=== PATIENT | female | born 1995 | race Caucasian/White ===

== ENCOUNTER 2020-11-21 12:44 | Emergency (ER) | payer SELFPAY ==
[2020-11-21] MEDS ORDERED: Sodium Chloride 0.9% 10 ML Syringe FLUSH PRN (12:48)
[2020-11-21] MEDS ORDERED: Sodium Chloride 0.9% 2.5 ML Syringe FLUSH PRN (12:48)
[2020-11-21] MEDS ORDERED: Ondansetron 4 MG/2 ML SDV IVPUSH ONE (13:04)
[2020-11-21] MEDS ORDERED: Sodium Chloride 0.9% 1,000 ML IV ONE (13:04)
[2020-11-21] MEDS ORDERED: Morphine 4 MG/ML Syringe IVPUSH ONE (13:04)
--- NOTE | 2020-11-21 13:12 | EDM.PDOC ---
ED HPI GENERAL MEDICAL PROBLEM - General Chief Complaint: Abdominal Pain Stated Complaint: STOMACH PAIN Time Seen by Provider: 11/21/20 12:47 Source of Information: Reports: Patient History Limitations: Reports: No Limitations - History of Present Illness INITIAL COMMENTS - FREE TEXT/NARRATIVE: HISTORY AND PHYSICAL: History of present illness: Patient is a 25-year-old female who presents to the emergency room with complaints of upper abdominal pain and nausea. She states 3 years ago she was diagnosed with hepatitis C and she also has had a longstanding history of "gallbladder problems". Most recently she was living in [place] and had been admitted to the hospital for elevated LFTs and assessment of her gallbladder. She states that they were going to evaluate her gallbladder further but had discharged her before they did any type of formal testing. She was discharged from the [facility] 3 weeks ago, continues to have abdominal pain after every time she eats, starts approximately 30 minutes after eating and resolves 1 hour after pain started. "Everyone in my family has had to have their gallbladder removed, but they will not do it because of my hepatitis". Today's symptoms are not new or unusual but decided to come in for evaluation as "I do not want to deal with the pain anymore". Patient denies any fever, chills, headache, change in vision, syncope or near syncope. Denies any chest pain, back pain, shortness of breath or cough. Denies any vomiting, diarrhea, constipation or dysuria. Has not noted any blood in urine or stool. Patient has been eating and drinking appropriately. Review of systems: As per history of present illness and below otherwise all systems reviewed and negative. Past medical history: As per history of present illness and as reviewed below otherwise noncontributory. Surgical history: As per history of present illness and as reviewed below otherwise noncontributory. Social history: See social history for further information Family history: As per history of present illness and as reviewed below otherwise noncontributory. Physical exam: General: Well developed and well nourished. Alert and orientated x 3. Nontoxic in appearance and in no acute distress. Vital signs are stable and have been reviewed by me. Nursing notes were reviewed. HEENT: Atraumatic, normocephalic, pupils equal and reactive bilaterally, negative for conjunctival pallor or scleral icterus, mucous membranes moist, TMs normal bilaterally, throat clear, neck supple, nontender, trachea midline. No drooling or trismus noted. No meningeal signs. No hot potato voice noted. Lungs: Clear to auscultation bilaterally. No wheezes, rales, or rhonchi. Chest nontender. Normal work of breathing, no accessory muscles used. Heart: S1S2, regular rate and rhythm without overt murmur, gallops, or rubs. No JVD. No peripheral edema Abdomen: Soft, nondistended, RUQ and LUQ tenderness with palpation. Normoactive bowel sounds. Negative for masses or costovertebral tenderness. Skin: Intact, warm, dry. No lesions or rashes noted. Hematologic: No petechiae or purpra. Mucosa appropriate color and normal nail bed color and refill. Extremities: Atraumatic, moves all extremities per self without difficulty or deficits, negative for cords or calf pain. Neurovascular unremarkable. Neuro: Awake, alert, oriented. Cranial nerves II through XII unremarkable. Cerebellum unremarkable. Motor and sensory unremarkable throughout. Exam nonfocal. Psychiatric: Mood and affect are appropriate. Normal thought process. Answering questions appropriately. Notes: *This patient was seen and evaluated during the 2019 SARS-CoV-2 novel coronavirus pandemic period. Community viral transmission is ongoing at time of this encounter and the emergency department is operating under pandemic response procedures. Patient is a 25-year-old female who presents to the emergency room with complaints of chronic abdominal pain. In the past she has been told it is due to her hepatitis C but she is convinced it is due to her gallbladder. She reports she recently was admitted at a [place] hospital due to elevated LFTs. She has now moved to [facility] and does not have any primary care established. Physical exam is unremarkable with the exception that her abdomen is tender with palpation to the right upper and left upper quadrant. Patient's LFTs are slightly elevated. She also has +2 bacteria in her urine. Due to the abdominal pain I will treat with Macrobid. Patient does feel improved after fluids and medications. I have sent a referral to the general surgeon as she is concerned she needs her gallbladder removed or would wish to have this happen in the near future. She is stable for discharge. I have talked with the patient about today's findings, in addition to providing specific details for plan of care. Reassessment at the time of disposition demonstrates that the patient is in no acute distress. The patient is stable for discharge, counseling was provided and we discussed in great detail signs and symptoms that would prompt them to return to the Emergency Department. Medication, follow up and supportive care measures were reviewed and discussed. Voices understanding and is agreeable to plan of care. Denies any further questions or concerns at this time. Diagnostics: CBC, CMP, UA, Lipase, HCGU Therapeutics: IV fluids, Zofran, Morphine Prescription: Macrobid Impression: Transaminitis UTI Abdominal pain Plan: 1. You were evaluated today on an emergent basis. Your LFTs are slightly elevated and you do have some bacteria in your urine. Antibiotics have been sent to [facility] to treat the bladder infection. [place] diet, low dairy, low fat over the next few days to see if this helps with the pain associated with eating. 2. You can alternate Tylenol and ibuprofen as needed for pain and fever management. 3. We encourage you to follow up with your primary care provider and the general surgeon to evaluate your gallbladder in the next few days for re-evaluation and further care/management. 4. If your symptoms should worsen, new symptoms develop or any of the signs and symptoms we discussed should arise please return to the emergency room or call 911 (if needed). Definitive disposition and diagnosis as appropriate pending reevaluation and review of above. Mid Abdominal Pain Score (Numeric/FACES): 8 - Related Data Allergies Allergy/AdvReac Type Severity Reaction Status Date / Time No Known Allergies Allergy Verified 11/21/20 14:14 Home Meds: Home Meds Nitrofurantoin Monohyd/M-Cryst [Macrobid 100 mg Capsule] 100 mg PO BID 5 Days #10 capsule 11/21/20 [Rx] ED ROS GENERAL - Review of Systems Review Of Systems: Comprehensive ROS is negative, except as noted in HPI. ED EXAM, GI/ABD - Physical Exam Exam: See Below (See dictation) Course - Vital Signs Last Recorded V/S: Last Vital Signs Temp 97.5 F 11/21/20 13:06 Pulse 87 11/21/20 13:06 Resp 17 11/21/20 13:06 BP 113/66 11/21/20 14:24 Pulse Ox 99 11/21/20 13:06 - Orders/Labs/Meds Orders: Active Orders 24 hr Category Date Time Status Saline Lock Insert [OM.PC] Stat Oth 11/21/20 12:48 Ordered Labs: Laboratory Tests 11/21/20 11/21/20 11/21/20 Range/Units 13:00 13:00 13:35 WBC 7.61 (4.0-11.0) K/uL RBC 5.55 (4.30-5.90) M/uL Hgb 15.1 (12.0-16.0) g/dL Hct 45.6 (36.0-46.0) % MCV 82.2 (80.0-98.0) fL MCH 27.2 (27.0-32.0) pg MCHC 33.1 (31.0-37.0) g/dL RDW Std Deviation 41.6 (28.0-62.0) fl RDW Coeff of Mary 14 (11.0-15.0) % Plt Count 351 (150-400) K/uL MPV 9.40 (7.40-12.00) fL Neut % (Auto) 68.8 (48.0-80.0) % Lymph % (Auto) 23.0 (16.0-40.0) % [place] % (Auto) 5.8 (0.0-15.0) % Eos % (Auto) 2.1 (0.0-7.0) % Baso % (Auto) 0.3 (0.0-1.5) % Neut # (Auto) 5.2 (1.4-5.7) K/uL Lymph # (Auto) 1.8 (0.6-2.4) K/uL [place] # (Auto) 0.4 (0.0-0.8) K/uL Eos # (Auto) 0.2 (0.0-0.7) K/uL Baso # (Auto) 0.0 (0.0-0.1) K/uL Nucleated RBC % 0.0 /100WBC Nucleated RBCs # 0 K/uL Sodium 142 (136-145) mmol/L Potassium 4.2 (3.5-5.1) mmol/L Chloride 103 (98-107) mmol/L Carbon Dioxide 28.5 (21.0-32.0) mmol/L BUN 11 (7.0-18.0) mg/dL Creatinine 0.7 (0.6-1.0) mg/dL Est Cr Clr Drug Dosing 97.17 mL/min Estimated GFR (MDRD) > 60.0 ml/min Glucose 127 H (74-106) mg/dL Calcium 9.3 (8.5-10.1) mg/dL Total Bilirubin 0.8 (0.2-1.0) mg/dL AST 70 H (15-37) IU/L ALT 127 H (14-63) IU/L Alkaline Phosphatase 276 H (46-116) U/L Total Protein 8.1 (6.4-8.2) g/dL Albumin 4.0 (3.4-5.0) g/dL Globulin 4.1 H (2.6-4.0) g/dL Albumin/Globulin Ratio 1.0 (0.9-1.6) Lipase 112 (73-393) U/L Urine Color YELLOW Urine Appearance SLT CLOUDY Urine pH 8.5 H (5.0-8.0) Ur Specific [place] 1.015 (1.001-1.035) Urine Protein TRACE H (NEGATIVE) mg/dL Urine Glucose (UA) NEGATIVE (NEGATIVE) mg/dL Urine Ketones NEGATIVE (NEGATIVE) mg/dL Urine Occult Blood NEGATIVE (NEGATIVE) Urine Nitrite NEGATIVE (NEGATIVE) Urine Bilirubin NEGATIVE (NEGATIVE) Urine Urobilinogen 1.0 (<2.0) EU/dL Ur Leukocyte Esterase NEGATIVE (NEGATIVE) Urine RBC NONE SEEN (0-2/HPF) Urine WBC 0-3 (0-5/HPF) Ur Epithelial Cells MODERATE (NONE-FEW) Urine Bacteria 2+ H (NEGATIVE) Urine Mucus MODERATE (NONE-MOD) Urine HCG, Qual (NEGATIVE) 11/21/20 Range/Units 13:35 WBC (4.0-11.0) K/uL RBC (4.30-5.90) M/uL Hgb (12.0-16.0) g/dL Hct (36.0-46.0) % MCV (80.0-98.0) fL MCH (27.0-32.0) pg MCHC (31.0-37.0) g/dL RDW Std Deviation (28.0-62.0) fl RDW Coeff of Mary (11.0-15.0) % Plt Count (150-400) K/uL MPV (7.40-12.00) fL Neut % (Auto) (48.0-80.0) % Lymph % (Auto) (16.0-40.0) % [place] % (Auto) (0.0-15.0) % Eos % (Auto) (0.0-7.0) % Baso % (Auto) (0.0-1.5) % Neut # (Auto) (1.4-5.7) K/uL Lymph # (Auto) (0.6-2.4) K/uL [place] # (Auto) (0.0-0.8) K/uL Eos # (Auto) (0.0-0.7) K/uL Baso # (Auto) (0.0-0.1) K/uL Nucleated RBC % /100WBC Nucleated RBCs # K/uL Sodium (136-145) mmol/L Potassium (3.5-5.1) mmol/L Chloride (98-107) mmol/L Carbon Dioxide (21.0-32.0) mmol/L BUN (7.0-18.0) mg/dL Creatinine (0.6-1.0) mg/dL Est Cr Clr Drug Dosing mL/min Estimated GFR (MDRD) ml/min Glucose (74-106) mg/dL Calcium (8.5-10.1) mg/dL Total Bilirubin (0.2-1.0) mg/dL AST (15-37) IU/L ALT (14-63) IU/L Alkaline Phosphatase (46-116) U/L Total Protein (6.4-8.2) g/dL Albumin (3.4-5.0) g/dL Globulin (2.6-4.0) g/dL Albumin/Globulin Ratio (0.9-1.6) Lipase (73-393) U/L Urine Color Urine Appearance Urine pH (5.0-8.0) Ur Specific [place] (1.001-1.035) Urine Protein (NEGATIVE) mg/dL Urine Glucose (UA) (NEGATIVE) mg/dL Urine Ketones (NEGATIVE) mg/dL Urine Occult Blood (NEGATIVE) Urine Nitrite (NEGATIVE) Urine Bilirubin (NEGATIVE) Urine Urobilinogen (<2.0) EU/dL Ur Leukocyte Esterase (NEGATIVE) Urine RBC (0-2/HPF) Urine WBC (0-5/HPF) Ur Epithelial Cells (NONE-FEW) Urine Bacteria (NEGATIVE) Urine Mucus (NONE-MOD) Urine HCG, Qual NEGATIVE (NEGATIVE) Meds: Medications Discontinued Medications Generic Name Dose Route Start Last Admin Trade Name Taylor PRN Reason Stop Dose Admin Sodium Chloride 1,000 mls @ 999 mls/hr 11/21/20 13:04 11/21/20 13:31 Normal Saline IV 11/21/20 14:04 999 mls/hr STAT ONE Administration Morphine Sulfate 4 mg 11/21/20 13:04 11/21/20 13:31 Morphine 4 Mg/Ml Syringe IVPUSH 11/21/20 13:05 4 mg ONETIME ONE Administration Ondansetron HCl 4 mg 11/21/20 13:04 11/21/20 13:31 Ondansetron 4 Mg/2 Ml Sdv IVPUSH 11/21/20 13:05 4 mg ONETIME ONE Administration Sodium Chloride 10 ml 11/21/20 12:48 11/21/20 13:31 Sodium Chloride 0.9% 10 Ml Syringe FLUSH 10 ml ASDIRECTED PRN Administration Keep Vein Open Sodium Chloride 2.5 ml 11/21/20 12:48 11/21/20 13:32 Sodium Chloride 0.9% 2.5 Ml Syringe FLUSH 2.5 ml ASDIRECTED PRN Administration Keep Vein Open Departure - Departure Time of Disposition: 14:07 Disposition: Home, Self-Care 01 Clinical Impression: Elevated transaminase level, UTI (urinary tract infection), uncomplicated Abdominal pain Qualifiers: Abdominal location: upper abdomen, unspecified Qualified Code(s): R10.10 - Upper abdominal pain, unspecified - Discharge Information Prescriptions: Nitrofurantoin Monohyd/M-Cryst [Macrobid 100 mg Capsule] 100 mg PO BID 5 Days #10 capsule Instructions: Abdominal Pain, Adult, [id number] Referrals: PCP,None [Primary Care Provider] - Forms: ED Department Discharge Additional Instructions: The following information is given to patients seen in the emergency department who are being discharged to home. This information is to outline your options for follow-up care. We provide all patients seen in our emergency department with a follow-up referral. The need for follow-up, as well as the timing and circumstances, are variable depending upon the specifics of your emergency department visit. If you don't have a primary care physician on staff, we will provide you with a referral. We always advise you to contact your personal physician following an emergency department visit to inform them of the circumstance of the visit and for follow-up with them and/or the need for any referrals to a consulting specialist. The emergency department will also refer you to a specialist when appropriate. This referral assures that you have the opportunity for follow-up care with a specialist. All of these measure are taken in an effort to provide you with optimal care, which includes your follow-up. Under all circumstances we always encourage you to contact your private physician who remains a resource for coordinating your care. When calling for follow-up care, please make the office aware that this follow-up is from your recent emergency room visit. If for any reason you are refused follow-up, please contact the [facility] Emergency Department at and asked to speak to the emergency department charge nurse. [facility] [address] [place] [address] [id number] [facility] [address] [place] [id number] Thank you for choosing the [facility] emergency department in [place] for your medical needs today. It was a pleasure caring for you. Today you were seen in the emergency department for abdominal pain. 1. You were evaluated today on an emergent basis. Your LFTs are slightly elevated and you do have some bacteria in your urine. Antibiotics have been sent to [facility] to treat the bladder infection. [place] diet, low dairy, low fat over the next few days to see if this helps with the pain associated with eating. 2. You can alternate Tylenol and ibuprofen as needed for pain and fever management. 3. We encourage you to follow up with your primary care provider and the general surgeon to evaluate your gallbladder in the next few days for re-evaluation and further care/management. 4. If your symptoms should worsen, new symptoms develop or any of the signs and symptoms we discussed should arise please return to the emergency room or call 911 (if needed). Sepsis Event Note (ED) - Focused Exam Vital Signs: Vital Signs Temp Pulse Resp BP Pulse Ox 06/18/21 14:24 113/66 11/21/20 13:06 97.5 F 87 17 120/67 99 - My Orders Last 24 Hours: My Active Orders 11/21/20 12:48 Saline Lock Insert [OM.PC] Stat - Assessment/Plan Last 24 Hours: My Active Orders 11/21/20 12:48 Saline Lock Insert [OM.PC] Stat
[2020-11-21 13:39] LABS: BLOOD UREA NITROGEN,BUN 11 mg/dL (7.0-18.0); CARBON DIOXIDE,CO2 28.5 mmol/L (21.0-32.0); CHLORIDE,CL 103 mmol/L (98-107); GLUCOSE RANDOM 127 mg/dL (74-106); LIPASE 112 U/L (73-393); POTASSIUM,K 4.2 mmol/L (3.5-5.1); SODIUM,NA 142 mmol/L (136-145)
== END 2020-11-21 14:25 | disposition home or self-care (01) ==
LOC: MW.ED 12:44
DX: N39.0 Urinary tract infection, site not specified (principal); R74.01 Elevation of levels of liver transaminase levels
CPT/HCPCS: 36415; 80053; 81001; 81025; 83690; 85025; 96374; 96375; 99284; J2270; J2405; J7030

== ENCOUNTER 2020-12-10 12:38 | Emergency (ER) | payer SELFPAY ==
[2020-12-10] MEDS ORDERED: Ketorolac 15 MG/ML SDV IVPUSH ONE (13:00)
--- NOTE | 2020-12-10 13:07 | EDM.PDOC ---
ED HPI GENERAL MEDICAL PROBLEM - General Chief Complaint: Back Pain or Injury Stated Complaint: BACK PAIN Time Seen by Provider: 12/10/20 12:42 Source of Information: Reports: Patient History Limitations: Reports: No Limitations - History of Present Illness INITIAL COMMENTS - FREE TEXT/NARRATIVE: Patient is a 25-year-old female presents today for back pain. Patient recently had her gallbladder removed December 06 and states that she was doing well until this morning to where she developed this intense pain in her abdomen just around her back. States that she has pain there that she moves her 7 fairly there is a gas bubble in the her back. She reports some nausea denies any vomiting says she was able to eat and tolerate p.o. denies any fever chills or diarrhea. Patient denies any direct injuries or falls. epigastric Pain Score (Numeric/FACES): 10 - Related Data Allergies Allergy/AdvReac Type Severity Reaction Status Date / Time No Known Allergies Allergy Verified 12/10/20 12:45 Home Meds: Home Meds . 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 Musculoskeletal History: Reports: None Neurological History: Reports: None Psychiatric History: Reports: None Endocrine/Metabolic History: Reports: None Hematologic History: Reports: None Immunologic History: Reports: None Oncologic (Cancer) History: Reports: None Dermatologic History: Reports: None - Infectious Disease History Infectious Disease History: Reports: Chicken Pox, Hepatitis C - Past Surgical History Head Surgeries/Procedures: Reports: None HEENT Surgical History: Reports: None Cardiovascular Surgical History: Reports: None Respiratory Surgical History: Reports: None GI Surgical History: Reports: Cholecystectomy Female Surgical History: Reports: None Endocrine Surgical History: Reports: None Neurological Surgical History: Reports: None Musculoskeletal Surgical History: Reports: None Oncologic Surgical History: Reports: None Dermatological Surgical History: Reports: None Social & Family History - Family History Family Medical History: No Pertinent Family History - Tobacco Use Tobacco Use Status *Q: Current Every Day Tobacco User Years of Tobacco use: 15 Packs/Tins Daily: 0.5 - Caffeine Use Caffeine Use: Reports: None - Recreational Drug Use Recreational Drug Use: No ED ROS GENERAL - Review of Systems Review Of Systems: See Below Constitutional: Reports: No Symptoms HEENT: Reports: No Symptoms Respiratory: Reports: No Symptoms Cardiovascular: Reports: No Symptoms Endocrine: Reports: No Symptoms GI/Abdominal: Reports: No Symptoms : Reports: No Symptoms Musculoskeletal: Reports: Back Pain Skin: Reports: No Symptoms Neurological: Reports: No Symptoms Psychiatric: Reports: No Symptoms Hematologic/Lymphatic: Reports: No Symptoms Immunologic: Reports: No Symptoms ED EXAM,LOWER BACK PAIN/INJURY - Physical Exam Exam: See Below Exam Limited By: No Limitations General Appearance: Alert, WD/WN Respiratory/Chest: No Respiratory Distress, Lungs Clear, Normal Breath Sounds Cardiovascular: Normal Peripheral Pulses, Regular Rate, Rhythm GI/Abdominal: Normal Bowel Sounds, Soft, Tender (Epigastric right upper quadrant) Extremities: Normal Inspection, Normal Range of Motion Neurological: Alert, Normal Gait, Oriented x 3 Course - Vital Signs Last Recorded V/S: Last Vital Signs Temp 96.9 F 12/10/20 12:46 Pulse 101 H 12/10/20 12:46 Resp 19 12/10/20 12:46 BP 158/89 H 12/10/20 12:46 Pulse Ox 96 12/10/20 12:46 - Orders/Labs/Meds Orders: Active Orders 24 hr Category Date Time Status DRUG SCREEN, URINE [URCHEM] Stat Lab 12/10/20 13:00 Ordered Labs: Laboratory Tests 12/10/20 12/10/20 12/10/20 Range/Units 12:30 12:50 12:50 WBC 9.70 (4.0-11.0) K/uL RBC 5.54 (4.30-5.90) M/uL Hgb 15.5 (12.0-16.0) g/dL Hct 45.2 (36.0-46.0) % MCV 81.6 (80.0-98.0) fL MCH 28.0 (27.0-32.0) pg MCHC 34.3 (31.0-37.0) g/dL RDW Std Deviation 44.2 (28.0-62.0) fl RDW Coeff of Mary 15 (11.0-15.0) % Plt Count 384 (150-400) K/uL MPV 9.50 (7.40-12.00) fL Neut % (Auto) 69.8 (48.0-80.0) % Lymph % (Auto) 21.4 (16.0-40.0) % [place] % (Auto) 7.2 (0.0-15.0) % Eos % (Auto) 1.4 (0.0-7.0) % Baso % (Auto) 0.2 (0.0-1.5) % Neut # (Auto) 6.8 H (1.4-5.7) K/uL Lymph # (Auto) 2.1 (0.6-2.4) K/uL [place] # (Auto) 0.7 (0.0-0.8) K/uL Eos # (Auto) 0.1 (0.0-0.7) K/uL Baso # (Auto) 0.0 (0.0-0.1) K/uL Nucleated RBC % 0.0 /100WBC Nucleated RBCs # 0 K/uL Sodium 139 (136-145) mmol/L Potassium 4.1 (3.5-5.1) mmol/L Chloride 102 (98-107) mmol/L Carbon Dioxide 25.4 (21.0-32.0) mmol/L BUN 8 (7.0-18.0) mg/dL Creatinine 0.6 (0.6-1.0) mg/dL Est Cr Clr Drug Dosing 113.36 mL/min Estimated GFR (MDRD) > 60.0 ml/min Glucose 99 (74-106) mg/dL Calcium 9.8 (8.5-10.1) mg/dL Total Bilirubin 1.8 H (0.2-1.0) mg/dL AST 324 H (15-37) IU/L ALT 521 H (14-63) IU/L Alkaline Phosphatase 346 H (46-116) U/L Total Protein 7.7 (6.4-8.2) g/dL Albumin 3.9 (3.4-5.0) g/dL Globulin 3.8 (2.6-4.0) g/dL Albumin/Globulin Ratio 1.0 (0.9-1.6) HCG, Qual NEGATIVE (NEG) Meds: Medications Discontinued Medications Generic Name Dose Route Start Last Admin Trade Name Freq PRN Reason Stop Dose Admin Sodium Chloride 1,000 mls @ 999 mls/hr 12/10/20 14:00 12/10/20 14:01 Normal Saline IV 12/10/20 15:00 999 mls/hr .Bolus ONE Administration Iopamidol 100 ml 12/10/20 15:13 12/10/20 15:14 Iopamidol 755 Mg/Ml 500 Ml Multipack Bottle IVPUSH 12/10/20 15:14 100 ml ONETIME STA Administration Ketorolac Tromethamine 30 mg 12/10/20 13:00 12/10/20 13:19 Ketorolac 15 Mg/Ml Sdv IVPUSH 12/10/20 13:01 30 mg ONETIME ONE Administration Morphine Sulfate 4 mg 12/10/20 14:20 12/10/20 14:28 Morphine 4 Mg/Ml Syringe IVPUSH 12/10/20 14:21 4 mg ONETIME ONE Administration - Re-Assessments/Exams Free Text/Narrative Re-Assessment/Exam: 12/10/20 16:[address] shows some extrahepatic dilatation probably choledocholithiasis. Patient also could possibly have cholangitis but she has no fever white count we spoke to surgery recommend hold off antibiotics this time. Patient will need to be transferred to have MRCP and possible ERCP. Spoke to [place] and have Dr. Murillo on-call GI who does ERCPs with ER physician was sent to patient for transfer. Departure - Departure Time of Disposition: 16:43 Disposition: Home, Self-Care 01 Condition: Good Clinical Impression: Choledocholithiasis - Discharge Information *PRESCRIPTION DRUG MONITORING PROGRAM REVIEWED*: Not Applicable *COPY OF PRESCRIPTION DRUG MONITORING REPORT IN PATIENT INDERJIT: Not Applicable Instructions: Biliary Colic, Adult Referrals: PCP,None [Primary Care Provider] - Forms: ED Department Discharge Sepsis Event Note (ED) - Evaluation Sepsis Screening Result: No Definite Risk - Focused Exam Vital Signs: Vital Signs Temp Pulse Resp BP Pulse Ox 12/10/20 12:46 96.9 F 101 H 19 158/89 H 96 - My Orders Last 24 Hours: My Active Orders 12/10/20 13:00 DRUG SCREEN, URINE [URCHEM] Stat - Assessment/Plan Last 24 Hours: My Active Orders 12/10/20 13:00 DRUG SCREEN, URINE [URCHEM] Stat Plan: Patient is a 25-year-old female presents today for back pain. Patient had her gallbladder removed 4 days ago who states that the pain in her abdomen around her back and feel that there is a gas bubble stuck in there. She is in room crying in pain. Will provide pain meds pain imaging and reassess.
[2020-12-10 13:28] LABS: BLOOD UREA NITROGEN,BUN 8 mg/dL (7.0-18.0); CARBON DIOXIDE,CO2 25.4 mmol/L (21.0-32.0); CHLORIDE,CL 102 mmol/L (98-107); GLUCOSE RANDOM 99 mg/dL (74-106); POTASSIUM,K 4.1 mmol/L (3.5-5.1); SODIUM,NA 139 mmol/L (136-145)
[2020-12-10] MEDS ORDERED: Sodium Chloride 0.9% 1,000 ML IV ONE (14:00)
[2020-12-10] MEDS ORDERED: Morphine 4 MG/ML Syringe IVPUSH ONE ×2 (14:20→17:05)
[2020-12-10] MEDS ORDERED: Iopamidol 755 MG/ML 500 ML Multipack Bottle IVPUSH STA (15:13)
--- NOTE | 2020-12-10 15:53 | CT ---
INDICATION: Recent gallbladder removal on 12/06/2020. Epigastric pain and low back pain. TECHNIQUE: CT of the abdomen and pelvis with 100 cc Isovue 370 IV contrast. Coronal and sagittal reconstructions. COMPARISON: None. FINDINGS: The liver, pancreas, and adrenal glands are negative. The spleen is mildly enlarged measuring 14 cm in AP dimension. Hepatic and portal veins are patent. Recent postoperative changes of cholecystectomy. Trace free fluid in the gallbladder fossa is likely postoperative in nature. No suspicious fluid collection. There is mild intra and extrahepatic bile duct dilation and mild dilation of the remnant cystic duct. Mild enhancement of the common bile duct wall. The common bile duct measures up to 9 mm in diameter but with normal distal tapering. No definite cause for obstruction identified. This could be related to post cholecystectomy state. Symmetric enhancement of the kidneys. No hydronephrosis or ureteral dilation. No obstructing urinary calculi. The bladder and uterus are normal in appearance. Surgical clip at the left uterine cornua. No abnormality in the adnexa. No bowel dilation. Negative appendix. Trace free fluid in the pelvis. No intraperitoneal free air. No lymphadenopathy. There is minimal depression of the T11 and T12 superior endplates which is age indeterminate (series 204, image 92). The lung bases are clear. IMPRESSION: 1. Recent postoperative changes of cholecystectomy with trace free fluid in the gallbladder fossa. No suspicious fluid collection. 2. Mild intra and extrahepatic bile duct dilation and mild dilation of the remnant cystic duct could be related to post cholecystectomy state. No definite cause for obstruction identified. If there is concern for choledocholithiasis, this could be further evaluated with MRCP. 3. There is also mild enhancement of common bile duct wall. Correlate clinically for signs of cholangitis. 4. Mild splenomegaly. 5. Age-indeterminate minimal depression of the T11 and T12 superior endplates. Please note that all CT scans at this facility use dose modulation, iterative reconstruction, and/or weight-based dosing when appropriate to reduce radiation dose to as low as reasonably achievable. Dictated by Claudia Bergeron MD @ 12/10/2020 3:53:[address] Claudia Bergeron @ Dec 10 2020 3:53PM
== END 2020-12-10 17:10 ==
LOC: MW.ED 12:38
DX: K80.50 Calculus of bile duct without cholangitis or cholecystitis without obstruction (principal); Z72.0 Tobacco use
CPT/HCPCS: 36415; 74177; 80053; 84703; 85025; 96374; 96375; 96376; 99284; J1885; J2270; J7030; Q9967